=== PATIENT | male | born 1965 | race Two or more races ===

== ENCOUNTER 2017-12-23 13:00 | Outpatient (AMBR) | payer MEDICAID, SELFPAY ==
--- NOTE | 2017-12-04 14:09 | PTNOTE_ITS ---
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 He is ambulating without assistive device but has difficulty with more physical activities like mowing his grass and grocery shopping. He reports pain level now at about 5/10. Pt is not working now. PMH: smoker, DM, HTN, high cholesterol Pt goal: to get rid of the pain in order to RTW Objective L knee AROM: Extension: full Flexion 115 deg Strength MMT Quads: 4/5 Hamstrings: 4/5 SLR: 85 deg Anterior drawer: positive gapping at 90 deg knee flexion Valgus testing: positive gapping and pain at 10 deg knee flexion Assessment Pt presentation consistent with referring Dx of patella and quadriceps tendinopathy. Pt has positive anterior tibial translation and valgus gapping which may contribute to tendinopathy and knee instability. Pt has good knee AROM and strength but dynamic mobility and knee loading limited by pain and instability. [employer] Goals 1. Independent with HEP 2. Pt will squat x10 with <=3/10 pain 3. Decreased TTP from mod to min of distal quads and patella tendon Treatment Plan Pt has 5 visits authorized and will be scheduled for 2x a week. 1. Manual therapy 2. Therex 3. Modalities as indicated, moist heat, ice, estim Frequency and Duration 2x a week for 6 weeks Certification Dates: 12/04/17 to 03/04/18 Office Procedures PT Procedures PT Date of Service: 12/04/17 OP PT Eval Mod Complex 30 minutes: Yes
--- NOTE | 2017-12-09 14:25 | PT.ODAYNRPT ---
PT Outpatient Daily Note Date of Service: December 09, 2017 OP Daily Note Visit Reasons: left knee Outpatient Physical Therapy Treatment Date: 12/09/17 Subjective: About the same as time of evaluation Objective: See F/S for therex Assessment: Moderate L gastroc atrophy, pt can do single leg heel raise with hand support. Challenged by balance activities on uneven surfaces. Plan: Continue per POC Length of Time (minutes) of Treatment: 30 Minutes Office Procedures PT Procedures PT Date of Service: 12/04/17 OP PT Eval Mod Complex 30 minutes: Yes PT Procedures PT Date of Service: 12/09/17 Therapeutic Exercise 30 minutes: Yes
--- NOTE | 2017-12-11 17:24 | PT.ODAYNRPT ---
PT Outpatient Daily Note Date of Service: December 11, 2017 OP Daily Note Visit Reasons: left knee Outpatient Physical Therapy Treatment Date: 12/11/17 Subjective: Doing ok today with normal walking but increased pain with uneven surfaces Objective: See F/S for therex MT :STM to L knee, distal quads with [place] x5' Assessment: Moderate L gastroc atrophy, pt can do single leg heel raise with hand support. Challenged by balance activities on uneven surfaces. Plan: Continue per POC Length of Time (minutes) of Treatment: 30 Minutes Office Procedures PT Procedures PT Date of Service: 12/11/17 OP PT Eval Mod Complex 30 minutes: Yes Therapeutic Exercise 30 minutes: Yes PT Procedures PT Date of Service: 12/09/17 Therapeutic Exercise 30 minutes: Yes
--- NOTE | 2017-12-16 15:38 | PT.ODAYNRPT ---
PT Outpatient Daily Note Date of Service: December 16, 2017 OP Daily Note Visit Reasons: left knee Outpatient Physical Therapy Treatment Date: 12/16/17 Subjective: pt doing well today. Objective: see flow sheet. Assessment: added new balance exercise using the wobble board as he has to calf raise without assistance. it was challenging for pt and needed to use rail at times due to instability. limited ROM of the ankle during calf raises. pt had good posture during wall squats (new exercise) with no compensation and no complaints. advised pt to use ice pack if needed. Plan: continue POC per PT. Length of Time (minutes) of Treatment: 30 Minutes Office Procedures PT Procedures PT Date of Service: 12/11/17 OP PT Eval Mod Complex 30 minutes: Yes Therapeutic Exercise 30 minutes: Yes PT Procedures PT Date of Service: 12/09/17 Therapeutic Exercise 30 minutes: Yes PT Procedures PT Date of Service: 12/16/17 Therapeutic Exercise 30 minutes: Yes
--- NOTE | 2017-12-18 13:32 | PT.ODAYNRPT ---
PT Outpatient Daily Note Date of Service: December 18, 2017 OP Daily Note Visit Reasons: left knee Outpatient Physical Therapy Treatment Date: 12/18/17 Subjective: Doing ok today with normal walking but increased pain with uneven surfaces Objective: See F/S for therex Assessment: Moderate L gastroc atrophy, pt can do single leg heel raise with hand support. Challenged by balance activities on uneven surfaces. Ssx consistent with medial/lateral knee instability. Plan: Continue per POC Length of Time (minutes) of Treatment: 30 Minutes Office Procedures PT Procedures PT Date of Service: 12/18/17 Therapeutic Exercise 30 minutes: Yes PT Procedures PT Date of Service: 12/11/17 OP PT Eval Mod Complex 30 minutes: Yes Therapeutic Exercise 30 minutes: Yes PT Procedures PT Date of Service: 12/09/17 Therapeutic Exercise 30 minutes: Yes PT Procedures PT Date of Service: 12/16/17 Therapeutic Exercise 30 minutes: Yes
--- NOTE | 2017-12-23 15:12 | PT.ODS1RPT ---
PT OP Progress/Discharge Note Date of Service: December 23, 2017 Progress Note/DC Note Progress Note/Discharge Note: DC Note Patient Information Visit Reasons: left knee Treatment Dx #1: L knee pain Service Continue Service or Discharge: Discharge Discharge Date: 12/23/17 Certification Date Certification Dates: 12/04/17 to 03/04/18 Status Subjective: Doing ok today with normal walking but increased pain with uneven surfaces Objective: L TKA ArOM: Flexion: 124 deg Extension: full: Strength: quads: 4/5 HS: 4/5 SLR: 85 deg Varus/valgus: moderate gapping at 10 deg knee flexion with pain Assessment: Pt has attended 5/5 Rx visits and made limited progress due to continued knee pain. Challenged by balance activities on uneven surfaces consistent with medial/lateral knee instability. Pt has varus/valgus gapping in 10 deg of knee flexion with pain that is likely contributing to ssx. He has moderate L gastroc atrophy, pt can do single leg heel raise with hand support. Progress has plateaued and he will continue with HEP. Plan: D/C with HEP Office Procedures PT Procedures PT Date of Service: 12/18/17 Therapeutic Exercise 30 minutes: Yes PT Procedures PT Date of Service: 12/11/17 OP PT Eval Mod Complex 30 minutes: Yes Therapeutic Exercise 30 minutes: Yes PT Procedures PT Date of Service: 12/09/17 Therapeutic Exercise 30 minutes: Yes PT Procedures PT Date of Service: 12/16/17 Therapeutic Exercise 30 minutes: Yes PT Procedures PT Date of Service: 12/23/17 Therapeutic Exercise 30 minutes: Yes
== END 2017-12-27 23:59 | disposition home or self-care (01) ==
PROVIDERS: PCP Orthopaedic Surgery; Referring Provider Orthopaedic Surgery; Visit Provider Orthopaedic Surgery
DX: M25.562 Pain in left knee (principal); Z96.652 Presence of left artificial knee joint
CPT/HCPCS: 97110; 97162